=== PATIENT | male | born 1965 | race Caucasian/White ===

== ENCOUNTER → 2021-10-25 | Outpatient (CLI) | payer MEDICARE ==
[~2021-10-25] MED LIST: DIATRIZOATE MEGL/DIATRIZOA SOD 30 ML BTL PO ONE; IOPAMIDOL 370 MG/ML 200 ML INFUS..BTL INJ ONE; SODIUM CHLORIDE 0.9% 500ML 500 ML ONE; SODIUM CHLORIDE 0.9% 50ML 50 ML ONE
[2021-10-25 10:20] LABS: CREATININE, SERUM 1.36 mg/dL (0.72-1.25)
== END ==
LOC: CT 09:09
PROVIDERS: ATTEND Surgery
DX: R19.03 Right lower quadrant abdominal swelling, mass and lump (principal)
CPT/HCPCS: 36415; 72193; 82565; 84520; 96360; J7040; Q9967